=== PATIENT | female | born 1990 | race Caucasian/White ===

== ENCOUNTER 2016-09-29 18:40 | Emergency (ER) | payer SELFPAY ==
[2016-09-29] MEDS ORDERED: 0.9 % SODIUM CHLORIDE 1,000 ML IV ONE ×2 (18:43→19:05)
[2016-09-29] MEDS ORDERED: THIAMINE HCL 100 MG, MVI, ADULT NO.1 WITH VIT K 10 ML, FOLIC ACID 5 MG in 0.9 % SODIUM ... IV ONE ×4 (18:45)
[2016-09-29] MEDS ORDERED: THIAMINE HCL 100 MG/ML 2ML VIAL ONE (19:05)
[2016-09-29 19:14] LABS: BASOPHILS % 0.5 (0.0-1.5); EOSINOPHILS % 3.5 % (0.0-6.8); MEAN CORPUSCULAR HEMOGLOBIN 30.4 pg (28.0-34.0); MEAN CORPUSCULAR VOLUME 91.6 fl (80.0-100.0); MONOCYTES % 2.3 % (0.0-11.0); NEUTROPHILS # 4.3 # k/uL (1.4-7.7)
[2016-09-29 19:31] LABS: eGFR (African) > 60; eGFR (Non-African) > 60
--- NOTE | 2016-09-29 21:23 | ED Physician Documentation ---
Psychological Disorders - HISTORIAN Historian: patient, other () - HPI Stated Complaint: intoxication Chief Complaint: Psychological Disorder Onset: hours Intent: suicide, wants to escape Severity: severe Further Comments: yes (25 year old female patient brought in by law enforcement for evaluation. was called to home by patient's parents. Patient was found intoxicated, running into traffic on [address], stated multiple times "I want to kill myself. I want to ". On arrival to ER, patient was very uncooperative, yelling at staff. Stated multiple times, "I am suicidal". Stated "I am going to slit my throat." Operations Support Specialist at bedside at all times.) - Associated Symptoms Symptoms: angry, agitated, hostile, confused Suicidal: specific plan - ROS CONST: denies: none Comment: Patient refuses to answer ROS - PAST HX Psychiatric problems: other (migraine, bursitis. ) Allergies/Adverse Reactions: Allergies Allergy/AdvReac Type Severity Reaction Status Date / Time Sulfa (Sulfonamide Allergy Unknown Verified 09/29/16 19:22 Antibiotics) Home Medications: Ambulatory Orders Medication Instructions Recorded NK [NK] 09/29/16 - Social HX Smoking History: cigarettes Drug Use: methamphetamines - Family HX Family HX: mental illness - VITAL SIGNS Vital Signs: Vital Signs Temp Pulse Resp BP Pulse Ox 98.2 F 86 16 174/109 96 09/29/16 18:45 09/29/16 21:30 09/29/16 18:45 09/29/16 18:45 09/29/16 21:30 - REVIEWED ASSESSMENTS Nursing Assessment Reviewed: Yes Vitals Reviewed: Yes Progress - Progress Progress: Law enforcement at patient's bedside during entire ER stay. Patient requesting to leave multiple times. Patient's questions answered multiple times. Patient verbally abusive to nursing and provider. Flight of idea, intermittent hostile outburst. 2100 Medically clear. Patient refuses to voluntarily go to inpatient treatment. Paper work for 96 hour hold completed. 2144 Operations Support Specialist notified patient of transfer and 96 hour hold; patient yelling and crying. Ativan 2mg IV given. Spoke with Abel in ER at [facility]; patient accepted by Dr Dominique for further medical clearance in the ER and transfer to [facility] [place]. - EKG/XRAY/CT EKG: rhythm (SR, Rate 91) ED Results Lab/Radiology - Lab Results Lab Results: Lab Results 09/29/16 09/29/16 09/29/16 21:28 19:05 19:05 WBC RBC Hgb Hct MCV MCH MCHC RDW Plt Count Neut % (Auto) Lymph % (Auto) [place] % (Auto) Eos % (Auto) Baso % (Auto) Neut # Lymph # [place] # Eos # Baso # Reactive Lymphs % Reactive Lymphs # Sodium Potassium Chloride Carbon Dioxide BUN Creatinine Est GFR ( Amer) Est GFR (Non-Af Amer) Glucose Calcium Total Bilirubin AST ALT Alkaline Phosphatase Troponin I < 0.03 ng/mL L ng/mL (0.03-0.06) Total Protein Albumin Serum HCG, Qual Negative (NEGATIVE) Acetaminophen < 10.0 ug/mL L ug/mL (10.0-30.0) Ethyl Alcohol 09/29/16 09/29/16 19:05 19:05 WBC 7.40 K/ul K/ul (4.00-12.00) RBC 4.31 M/ul M/ul (3.90-5.20) Hgb 13.1 g/dL g/dL (12.0-16.0) Hct 39.4 % % (34.5-46.5) MCV 91.6 fl fl (80.0-100.0) MCH 30.4 pg pg (28.0-34.0) MCHC 33.2 g/dL g/dL (30.0-36.0) RDW 13.0 % % (11.3-14.3) Plt Count 350 K/mm3 K/mm3 (130-400) Neut % (Auto) 58.3 % % (39.0-79.0) Lymph % (Auto) 33.8 % % (16.0-50.0) [place] % (Auto) 2.3 % % (0.0-11.0) Eos % (Auto) 3.5 % % (0.0-6.8) Baso % (Auto) 0.5 (0.0-1.5) Neut # 4.3 # k/uL # k/uL (1.4-7.7) Lymph # 2.5 # k/uL # k/uL (0.6-4.0) [place] # 0.2 # k/uL # k/uL (0.0-0.9) Eos # 0.3 # k/uL # k/uL (0.0-0.6) Baso # 0.0 # k/uL # k/uL (0.0-0.5) Reactive Lymphs % 1.6 % % (0.0-5.0) Reactive Lymphs # 0.1 # k/uL # k/uL (0.0-0.8) Sodium 141 mmol/L mmol/L (136-145) Potassium 3.6 mmol/L mmol/L (3.5-5.0) Chloride 108 mmol/L mmol/L (98-110) Carbon Dioxide 27 mmol/L mmol/L (20-32) BUN 9 mg/dL L mg/dL (10-26) Creatinine 0.6 mg/dL mg/dL (0.4-1.5) Est GFR ( Amer) > 60 (60 - ) Est GFR (Non-Af Amer) > 60 (60 - ) Glucose 100 mg/dL H mg/dL (70-99) Calcium 9.6 mg/dL mg/dL (8.5-10.5) Total Bilirubin 0.2 mg/dL mg/dL (0.2-1.2) AST 18 U/L U/L (0-41) ALT 16 U/L U/L (0-45) Alkaline Phosphatase 58 U/L U/L (46-116) Troponin I Total Protein 7.8 g/dL g/dL (6.0-8.5) Albumin 4.5 g/dL g/dL (3.0-5.5) Serum HCG, Qual Acetaminophen Ethyl Alcohol 200.0 MG/DL H MG/DL (<10.0) - Orders Orders: ED Orders Category Date Time Status Continuous EKG monitoring Q30M Care 09/29/16 18:43 Active Continuous Pulse Oximetry Q30M Care 09/29/16 18:[address] Saline Lock/IV NOW Care 09/29/16 18:43 Active ACETAMINOPHEN LEVEL Stat Lab 09/29/16 19:05 Completed CBC/PLATELET/DIFF Stat Lab 09/29/16 19:05 Completed CMP Stat Lab 09/29/16 19:05 Completed ETHANOL MEDICAL USE ONLY Stat Lab 09/29/16 19:05 Completed SALICYLATE LEVEL Stat Lab 09/29/16 19:05 Received SERUM HCG Stat Lab 09/29/16 21:28 Completed TROPONIN I (cTnI) Stat Lab 09/29/16 19:05 Completed UA W/MICRO IF INDICATED Stat Lab 09/29/16 18:43 Ordered 0.9 % Sodium Chloride [Normal Saline] 1,000 ml Med 09/29/16 19:05 Discontinued IV .STK-MED 0.9 % Sodium Chloride [Normal Saline] 1,000 ml Med 09/29/16 18:43 Discontinued IV NOW LORazepam [Ativan] Med 09/29/16 21:50 Discontinued 2 mg .ROUTE .STK-MED ONE LORazepam [Ativan] Med 09/29/16 21:49 Discontinued 2 mg IVP NOW ONE Thiamine HCl Med 09/29/16 19:05 Discontinued 200 mg .ROUTE .STK-MED ONE Thiamine HCl 100 mg Med 09/29/16 18:45 Discontinued Mvi, Adult No.1 with Vit K [M.v.i. Adult] 10 ml Folic Acid [Folvite] 5 mg 0.9 % Sodium Chloride [Normal Saline] 1,000 ml IV NOW EKG WITH COMPARISON Stat Ther 09/29/16 18:43 Ordered Psych Physical Exam - Physical Exam General Appearance: anxious, uncooperative for exam Eyes: PERRL Mental Status: hostile, suicidal ideation Suicide Attempts: still contemplating Orientation: uncooperative, other (Oriented x 3) Cranial Nerves: CN's intact as tested Sensory, Motor: nml motor response, nml sensory response, nml gait Neck/Back: normal inspection, thyroid normal Respiratory: no resp distress, chest non-tender, breath sounds normal CVS: reg rate & rhythm, heart sounds normal, equal pulses, no murmur, no gallop , PMI nml, no JVD, no friction rub, 24 Abdomen: non-tender, no organomegaly, nml bowel sounds, no distention Skin: normal color, warm/dry, NR, INT, PAL, DR Extremities: non-tender, normal range of motion, no evidence of injury, no edema , J, 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
[2016-09-29] MEDS ORDERED: LORazepam 2 MG/ML VIAL IVP ONE (21:49)
[2016-09-29] MEDS ORDERED: LORazepam 2 MG/ML VIAL ONE (21:50)
[2016-09-29 22:07] VITALS: BP 132/74
[2016-09-30 06:01] LABS: APPEARANCE,URINE CLEAR (CLEAR); COLOR,URINE YELLOW (YELLOW); OCCULT BLOOD,URINE 3+ (NEGATIVE); PH URINE 6.5 (5.0 - 8.0); UROBILINOGEN URINE 0.2 Eu (0.2-1.0)
== END 2016-09-29 22:05 | disposition short-term general hospital (02) ==
LOC: ED 18:40
DX: T14.91 Suicide attempt (principal); X58.XXXA Exposure to other specified factors, initial encounter; Y93.9 Activity, unspecified; Y99.9 Unspecified external cause status
CPT/HCPCS: 80053; 80302; 80304; 80320; 81002; 84484; 84703; 85025; 93005; J2060; J3411; J3490; J7030; 96374; 99284; G0477; G0479; G0480; S1016